=== PATIENT | female | born 1965 | race Caucasian/White ===

== ENCOUNTER 2019-04-01 13:56 | Emergency (ER) | payer OTHER ==
[~2019-04-01] VITALS: Ht 132.1 cm; Wt 81.2 kg
[2019-04-01 14:06] VITALS: Ht 132.1 cm; Wt 81.2 kg
[2019-04-01 18:17] VITALS: BP 145/87
== END 2019-04-01 18:17 | disposition home or self-care (01) ==
LOC: ED 13:56
DX: M25.512 Pain in left shoulder (principal); W01.0XXA Fall on same level from slipping, tripping and stumbling without subsequent striking against object, initial encounter; Y93.89 Activity, other specified; Y92.89 Other specified places as the place of occurrence of the external cause; Y99.8 Other external cause status
CPT/HCPCS: J1885

== ENCOUNTER 2019-05-07 19:21 | Emergency (ER) | payer SELFPAY ==
[~2019-05-07] VITALS: Ht 132.1 cm; Wt 83.0 kg
[2019-05-07 20:18] VITALS: BP 143/77
== END 2019-05-08 01:26 | disposition home or self-care (01) ==
LOC: ED 19:21
DX: S29.011A Strain of muscle and tendon of front wall of thorax, initial encounter (principal); S29.012A Strain of muscle and tendon of back wall of thorax, initial encounter; I10 Essential (primary) hypertension; X58.XXXA Exposure to other specified factors, initial encounter; Y93.89 Activity, other specified; Y92.89 Other specified places as the place of occurrence of the external cause; Y99.8 Other external cause status
CPT/HCPCS: J1885

== ENCOUNTER 2020-05-17 12:05 | Emergency (ER) | payer OTHER ==
[~2020-05-17] VITALS: Ht 152.4 cm; Wt 73.5 kg
[2020-05-17 12:40] VITALS: BP 118/58; Ht 152.4 cm; Wt 73.5 kg
== END 2020-05-17 14:45 | disposition home or self-care (01) ==
LOC: ED 12:05
DX: M25.561 Pain in right knee (principal); I10 Essential (primary) hypertension; Z98.890 Other specified postprocedural states